=== PATIENT | female | born 1980 | race Caucasian/White ===

== ENCOUNTER 2023-04-19 11:10 | Day surgery (SDC) | payer BC, SELFPAY ==
[2023-04-19] VITALS (7 sets, daily range): BP systolic 99–122; BP diastolic 50–76; PULSE 59–78; RESP 11–22; TEMP 36.8; O2SAT 96–100; BMI 43.3
--- NOTE | 2023-04-19 | PATH_ITS ---
[facility] Accession Number: [id number] No. of containers..01 Tissue . 01 Material submitted: . foot - LEFT FOOT FIRST INTERSPACE PLANTAR VERRUCA . 01 Diagnosis: LEFT FOOT FIRST INTERSPACE, BIOPSY: Verruca plantaris, myrmecia type. [facility] 04/24/2023 1825 Local . 01 Electronically signed: . Anshul Argueta MD, Dermatopathologist NPI- [id number] . 01 Gross description: . LEFT FOOT FIRST INTERSPACE PLANTAR VERRUCA: Received in formalin is 1 fragment of cade soft tissue measuring 0.5 x 0.4 x 0.3 cm. Tissue is inked. Specimen is sectioned and submitted in its entirety in 1 cassette. /SERGIO 04/23/2023 012 Local . 01 Pathologist provided ICD-10: B07.9 . 01 CPT . 833082 Performed at: 01 [facility] [address] [place] [address] [id number] MD Dhruv Alvarado MD Phone: [phone]
[2023-04-19] MEDS: LACTATED RINGERS 1,000 ML 42 ML IV (12:02)
--- NOTE | 2023-04-19 12:26 | PM.PREOP ---
Pre-operative Note Interval Note History & Physical reviewed/Exam performed by Physician: Yes Changes to H&P: No
--- NOTE | 2023-04-19 12:27 | P.OP_ITS ---
Operative Date/Time/Diagnoses Date of procedure: 04/19/23 Time of procedure: 12:27 Pre-op diagnosis: Left foot mass, suspect plantar verruca Post-op diagnosis: same Procedure & Clinicians Procedure: Left foot mass excision and curettage. Same procedure as scheduled: Yes Indications: 42 yo female with painful ongoing mass to the ball of the left foot. I suspect it to be a verrucoid mass. It is giving her pain and has not responded to conservative treatments. She would like to undergo surgical excision and curettage at this time. We spoke of the risks, potential complications, alternatives, and expected outcomes. Consent was signed and no contraindications to the procedure at this time. Surgeon: Zoraida Maravilla Click Yes if Unassisted: Yes Anesthesia Type: MAC +/- and Sedation Operative Notes Closure Type: not applicable Specimen(s): other (Mass of skin on plantar 1st interspace left foot sent to pathology, suspected verruca.) Estimated Blood Loss (mL): 2 Blood products transfused: none Tourniquet time (min): 0 Procedure in detail: Patient was brought to the operating room and placed on the operating table in the supine position. The left foot and ankle were prepped. After mild IV sedation local anesthesia was used to infiltrate around the skin mass on the p lantar left 1st interspace foot using the recorded injectables. The foot was then prepped and draped in the usual aseptic manner. After a check of anesthesia, a 15 blade was used to pare down the overlying hyperkeratotic tissue of the verrucoid lesion under the plantar 1st interspace. Pinpoint capillary bleeding of the verrucoid tissue was noted. Measurement of the lesion was approximately 0.5 x 1.0 cm. A curette was used to core out the central portion down to the deep fascia. This central portion was sent to the lab for pathologic identification. Next cautery was performed to the center and surrounding edge of the skin and pastor of the verruca. This was then curettaged, checked, and recauterized. This was done in a cyclic manner until it was noticeably back to clean and healthy bleeding tissue without skin line interruption. Margin was taken on all sides of the original lesion to make sure to include all elements of the verrucoid tissue. Care was taken to also use suction during the process for any aerosol particles from the cautery. The area was irrigated with copious amounts of normal sterile saline. The foot was then dressed with Xeroform, gauze, Kerlix, Nacho wrap, stockinette, and placed in a postoperative shoe. Vascular status remained intact to the foot throughout the procedure. Patient was transferred to the PACU with vital signs stable. Complications: none Post-operative Condition: stable Disposition: PACU Plan for aftercare: Following a period of postoperative monitoring, the patient will be discharged to home on written and oral postoperative instructions including keeping the dressing dry and intact, no greater than 50% weight to the surgical foot, icing and elevating the foot when seated home. DVT prevention techniques have been reviewed.
--- NOTE | 2023-04-19 12:39 | SUR.OPER ---
Supine on padded OR bed, head on pillow, arms secured on padded arm boards at <90 degrees abduction, legs uncrossed, safety belt at thigh, tape over blanket over lower legs.
[2023-04-19] MEDS: CEFAZOLIN 2 GM/100 ML PREMIX 100 ML IV (12:55)
[2023-04-19] MEDS: BUPIVACAINE 0.5% (PF) 30 ML, EPINEPHrine 0.15 MG INJ (13:20)
== END 2023-04-19 14:26 | disposition home or self-care (01) ==
PROVIDERS: Referring Provider Podiatrist; Visit Provider Podiatrist
PROC: (CPT 11420; principal; 2023-04-19 12:30)
DX: B07.0 Plantar wart (principal)
CPT/HCPCS: 11420; J0171; J0690; J2250; J2704; J3010